=== PATIENT | male | born 1995 | race African-American/Black ===

== ENCOUNTER 2019-09-04 19:00 | Emergency (ER) | payer BC, OTHER ==
[~2019-09-04] VITALS: Ht 182.9 cm; Wt 105.2 kg
[2019-09-04 19:06] VITALS: BP 143/92
[2019-09-04] MEDS ORDERED: IBUPROFEN 600 MG TAB PO ONE (19:15)
[2019-09-04] MEDS ORDERED: TETANUS-DIPTH-ACEL PERTUSSIS 0.5ML SYRG IM ONE (19:15)
[2019-09-04] MEDS ORDERED: LIDOCAINE W/ EPINEPHRINE 2% INJ 20ML VIAL IJ ONE (19:30)
== END 2019-09-04 19:43 | disposition home or self-care (01) ==
LOC: ER 19:00
DX: S01.112A Laceration without foreign body of left eyelid and periocular area, initial encounter (principal); X58.XXXA Exposure to other specified factors, initial encounter; Y93.89 Activity, other specified; Y92.89 Other specified places as the place of occurrence of the external cause; Y99.8 Other external cause status
CPT/HCPCS: 12011; 90471; 90715